=== PATIENT | female | born 1950 ===

== ENCOUNTER 2020-12-26 06:27 | Outpatient (CLI) | payer OTHER | END 2020-12-26 23:59 | disposition home or self-care (01) | LOC: LAB 06:27 | PROVIDERS: ATTEND Ophthalmology | DX: Z01.812 Encounter for preprocedural laboratory examination (principal); Z20.822 Contact with and (suspected) exposure to COVID-19 ==

== ENCOUNTER 2020-12-28 06:12 | Day surgery (SDC) | payer BC, OTHER ==
[2020-12-28] MEDS ORDERED: TROPICAMIDE 1% OPHT DROP 3 ML BOTTLE ONE (06:46)
[2020-12-28] MEDS ORDERED: CIPROFLOXACIN 0.3% OPHT DROP 2.5 ML BOTTLE ONE (06:46)
[2020-12-28] MEDS ORDERED: KETOROLAC 0.5% OPHT DROP 3 ML BOTTLE ONE (06:46)
[2020-12-28] MEDS ORDERED: PHENYLEPHRINE 2.5% OPHT DROP 2 ML BOTTLE ONE (06:46)
[2020-12-28] MEDS ORDERED: CYCLOPENTOLATE 2% OPHT DROP 2 ML BOTTLE ONE (06:47)
[2020-12-28] MEDS ORDERED: BALANCED SALT IRRIG SOLN COMB1 500 ML, EPINEPHRINE-PF 1:1000 0.5 MG IO ONE (07:00)
[2020-12-28] MEDS ORDERED: MOXIFLOXACIN HCL 3 ML OPHT DROPS ONE (07:17)
[2020-12-28] MEDS ORDERED: LIDOCAINE-MPF 2% 5 ML VIAL ONE (07:17)
[2020-12-28] MEDS ORDERED: BALANCED SALT IRRIG SOLN COMB1 500 ML ONE (07:18)
[2020-12-28] MEDS ORDERED: BALANCED SALT IRRIG SOLN COMB2 15 ML IRRIG.SOLN ONE (07:18)
[2020-12-28] MEDS ORDERED: TIMOLOL MALEATE 0.5% OPHT DROP 5 ML BOTTLE ONE (07:18)
[2020-12-28] MEDS ORDERED: HYALURONIDASE,OVINE 200 UNITS/ML VIAL ONE (07:18)
[2020-12-28] MEDS ORDERED: ACETYLCHOLINE CHLORIDE 1% OPHT 1 EA KIT ONE (07:18)
[2020-12-28] MEDS ORDERED: BUPIVACAINE PF 0.5% 30 ML VIAL ONE (07:18)
[2020-12-28] MEDS ORDERED: NEO/POLYMYX B/DEXAME OPHT OINT 3.5 GM TUBE ONE (07:18)
[2020-12-28] MEDS ORDERED: HYALURONATE SODIUM 12.8 MG/0.8 ML DISP.SYRIN ONE (07:19)
[2020-12-28] MEDS ORDERED: FENTANYL CITRATE 100 MCG/2 ML AMPUL ONE (08:05)
[2020-12-28] MEDS ORDERED: TRYPAN BLUE 0.5 ML DISP.SYRIN ONE (08:20)
== END 2020-12-28 10:27 | disposition home or self-care (01) ==
LOC: DS 06:12
PROVIDERS: ATTEND Ophthalmology
DX: H25.89 Other age-related cataract (principal); I12.9 Hypertensive chronic kidney disease with stage 1 through stage 4 chronic kidney disease, or unspecified chronic kidney disease; N18.30 Chronic kidney disease, stage 3 unspecified; E78.5 Hyperlipidemia, unspecified; M19.90 Unspecified osteoarthritis, unspecified site; Z79.899 Other long term (current) drug therapy; Z98.890 Other specified postprocedural states
CPT/HCPCS: 36415; 66984; 71045; 84132; J0171; J3010; J3471; J3490 ×2; J7120; J7321; Q9968; V2632; A4663

== ENCOUNTER 2021-12-04 06:54 | Outpatient (CLI) | payer OTHER | END 2021-12-04 23:59 | disposition home or self-care (01) | LOC: LAB 06:54 | PROVIDERS: ATTEND Ophthalmology | DX: Z01.812 Encounter for preprocedural laboratory examination (principal); Z20.822 Contact with and (suspected) exposure to COVID-19 ==

== ENCOUNTER 2021-12-06 06:12 | Day surgery (SDC) | payer OTHER ==
[~2021-12-06 06:12] MED LIST: ACETYLCHOLINE CHLORIDE 1% OPHT 1 EA KIT ONE; BALANCED SALT IRRIG SOLN COMB1 0 ML ONE; BALANCED SALT IRRIG SOLN COMB2 15 ML IRRIG.SOLN ONE; BUPIVACAINE PF 0.5% 30 ML VIAL ONE; EPINEPHRINE 1 MG/1 ML AMP ONE; HYALURONATE SODIUM 12.8 MG/0.8 ML DISP.SYRIN ONE; HYALURONATE SODIUM 8.5 MG/0.85 ML ONE; LIDOCAINE HCL 2% 20 ML VIAL ONE; MOXIFLOXACIN HCL 3 ML OPHT DROPS ONE; NEO/POLYMYX B/DEXAME OPHT OINT 3.5 GM TUBE ONE; TIMOLOL MALEATE 0.5% OPHT DROP 5 ML BOTTLE ONE; TRYPAN BLUE 0.5 ML DISP.SYRIN ONE
[2021-12-06] MEDS ORDERED: TETRACAINE HCL 0.5% OPHT DROP 2 ML BOTTLE ONE (06:24)
[2021-12-06] MEDS ORDERED: CIPROFLOXACIN 0.3% OPHT DROP 2.5 ML BOTTLE ONE (06:24)
[2021-12-06] MEDS ORDERED: CYCLOPENTOLATE 1% OPHT DROP 2 ML BOTTLE ONE (06:24)
[2021-12-06] MEDS ORDERED: PHENYLEPHRINE 10% OPHT DROP 5 ML BOTTLE ONE (06:24)
[2021-12-06] MEDS ORDERED: ATROPINE SULFATE 1% OPHT DROP 2 ML ONE (06:24)
[2021-12-06] MEDS ORDERED: TROPICAMIDE 1% OPHT DROP 3 ML BOTTLE ONE (06:25)
[2021-12-06] MEDS ORDERED: PHENYLEPHRINE 2.5% OPHT DROP 2 ML BOTTLE ONE (06:25)
[2021-12-06] MEDS ORDERED: KETOROLAC 0.5% OPHT DROP 3 ML BOTTLE ONE (06:25)
[2021-12-06] MEDS ORDERED: FENTANYL CITRATE 100 MCG/2 ML AMPUL ONE (06:53)
[2021-12-06] MEDS ORDERED: BALANCED SALT IRRIG SOLN COMB1 500 ML, EPINEPHRINE-PF 1:1000 0.5 MG IO ONE ×2 (07:00)
[2021-12-06] MEDS ORDERED: LIDOCAINE-MPF 2% , 2 ML VIAL ONE (07:15)
[2021-12-06] MEDS ORDERED: HYALURONIDASE,OVINE 200 UNITS/ML VIAL ONE (07:37)
== END 2021-12-06 10:20 | disposition home or self-care (01) ==
LOC: DS 06:12
PROVIDERS: ATTEND Ophthalmology
DX: H25.89 Other age-related cataract (principal); I12.9 Hypertensive chronic kidney disease with stage 1 through stage 4 chronic kidney disease, or unspecified chronic kidney disease; N18.9 Chronic kidney disease, unspecified; M19.90 Unspecified osteoarthritis, unspecified site; E78.5 Hyperlipidemia, unspecified; Z79.899 Other long term (current) drug therapy; Z98.890 Other specified postprocedural states
CPT/HCPCS: 71045; A4663; J0171; J3010; J3471; J3490; J7120; J7321; Q9968; V2632